=== PATIENT | female | born 1965 ===

== ENCOUNTER 2025-03-28 06:22 | Day surgery (SDC) | payer BC ==
[~2025-03-28] VITALS: Ht 175.3 cm; Wt 88.6 kg
[2025-03-28] MEDS ORDERED: NS 1,000 ML IV ONE ×2 (06:27→07:13)
[2025-03-28] MEDS ORDERED: FENO48 (06:47)
[2025-03-28] MEDS ORDERED: METF500C PO (06:48)
[2025-03-28 07:00] VITALS: BP 124/88
[2025-03-28] MEDS ORDERED: Flumazenil 0.1 MG / ML 5ML Vial ONE (07:08)
[2025-03-28] MEDS ORDERED: Naloxone HCl 0.4MG / ML 1ML Vial ONE (07:08)
[2025-03-28] MEDS ORDERED: FentaNYL Citrate 50 MCG/ML 2 ML Injection ONE (07:08)
[2025-03-28] MEDS ORDERED: Midazolam HCl 1MG / ML 2ML Vial ONE (07:09)
--- NOTE | 2025-03-28 08:56 | NUR ---
pt back to recovery. pt a&o. site soft and non-tender per pt. no bleeding/hematoma noted. dr phillips at bedside discussing procedure and future plan of care.
[2025-03-28 09:00] VITALS: BP 133/103
[2025-03-28 09:15] VITALS: BP 136/96
[2025-03-28] MEDS ORDERED: Phenylephrine HCl 100 MCG/ML-NS 10MLSYR (1MG/10ML) ONE (09:15)
[2025-03-28 09:30] VITALS: BP 132/91
--- NOTE | 2025-03-28 09:39 | NUR ---
site sift and non-tender per pt. no bleeding noted.
[2025-03-28 09:45] VITALS: BP 137/96
--- NOTE | 2025-03-28 09:56 | NUR ---
pt given coffee per request
[2025-03-28 10:00] VITALS: BP 137/86
--- NOTE | 2025-03-28 10:10 | NUR ---
pt given dc instructions and verbalized understadning. iv out. pt changed. site soft and non-tender per pt. no bleeding/hematoma noted. pt refused wc. pt ambulated to lby w/ who will dirve pt home.
== END 2025-03-28 10:00 | disposition home or self-care (01) ==
LOC: CT 06:22 → MHTC 06:23 → CT 07:00
DX: C64.2 Malignant neoplasm of left kidney, except renal pelvis (principal)
CPT/HCPCS: 50593; 77013; 99152; 99153; C2618; J2250; J2310; J2371; J3010; J7030; Q9967